=== PATIENT | male | born 1950 | race Two or more races ===

== ENCOUNTER 2017-08-23 08:33 | Inpatient (IN) | payer MEDICAID ==
[~2017-08-23] VITALS: Ht 170.2 cm; Wt 95.3 kg
[2017-08-23] MEDS ORDERED: Sodium Chloride 500ML 500 ML IV ONE (08:48)
[2017-08-23] MEDS: Nitroglycerin Subl 0.4mg tab SL PRN ×3 (08:53→11:08)
[2017-08-23 08:56] LABS: HEMATOCRIT 52.2 % (42.0-52.0); HEMOGLOBIN 17.4 G/DL (14.2-18.0); MEAN CORPUSCULAR VOLUME 95 FL (80-99); PLATELET COUNT 238 K/UL (150-450); RED BLOOD COUNT 5.52 M/UL (4.70-6.10); RED CELL DISTRIBUTION WIDTH 11.2 % (11.6-14.8); WHITE BLOOD COUNT 13.2 K/UL (4.8-10.8)
[2017-08-23] MEDS ORDERED: METOPROLOL TART25 MG ORAL (08:57)
[2017-08-23] MEDS ORDERED: LISINOPRIL2.5 MG ORAL (08:57)
[2017-08-23] MEDS ORDERED: FOLIC ACID1 MG ORAL (08:57)
[2017-08-23] MEDS ORDERED: PLAVIX75 MG ORAL (08:57)
[2017-08-23] MEDS ORDERED: ZOCOR40 MG ORAL (08:57)
[2017-08-23] MEDS ORDERED: ISOSORBIDE DINIT5 MG ORAL (08:57)
[2017-08-23 09:12] LABS: ANION GAP 7 mmol/L (5-15); BLOOD UREA NITROGEN 27 mg/dL (7-18); CALCIUM 8.5 MG/DL (8.5-10.1); CARBON DIOXIDE 31 MMOL/L (21-32); CHLORIDE 100 MMOL/L (98-107); CREATININE 1.5 MG/DL (0.55-1.30); POTASSIUM 4.6 MMOL/L (3.5-5.1); SODIUM 138 MMOL/L (136-145)
[2017-08-23 09:20] VITALS: BP 131/76
[2017-08-23 09:27] LABS: ALANINE AMINOTRANSFERASE 34 U/L (12-78); ALBUMIN 4.2 G/DL (3.4-5.0); ALBUMIN/GLOBULIN RATIO 1.1 (1.0-2.7); ALKALINE PHOSPHATASE 52 U/L (46-116); ASPARTATE AMINO TRANSFERASE 22 U/L (15-37); BILIRUBIN,TOTAL 0.6 MG/DL (0.2-1.0); CKMB 1.8 NG/ML (0.0-3.6); CREATINE KINASE 82 U/L (26-308)
[2017-08-23 11:01] VITALS: BP 158/84
--- NOTE | 2017-08-23 11:08 | Emergency Room Report ---
History of Present Illness General Chief Complaint: Chest Pain Source: Patient Present Illness HPI 66-year-old male presents ED complaining of chest pain started last night around midnight. Started at rest. Pressure-like, 8 out 10, midsternal, nonradiating. Patient states he did not take his blood pressure medications this morning. Patient is hypertensive and tachycardic. Denies shortness of breath. Denies alcohol or drug use. No other aggravating relieving factors. Denies any other associated symptoms Allergies: Coded Allergies: No Known Allergies (Unverified , 08/23/17) Patient History Past Medical History: DM, HTN, CAD Past Surgical History: none Pertinent Family History: none Social History: Denies: smoking, alcohol use, drug use Immunizations: UTD Reviewed Nursing Documentation: PMH: Agreed, PSxH: Agreed Nursing Documentation-PMH Past Medical History: No History, Except For Hx Cardiac Problems: Yes - 2x Stent placement Hx Hypertension: Yes Hx Pacemaker: No Hx Asthma: No Hx COPD: No Hx Diabetes: Yes Hx Cancer: No Hx Gastrointestinal Problems: No Hx Dialysis: No History Of Psychiatric Problem: No Hx Neurological Problems: No Hx Cerebrovascular Accident: No Hx Seizures: No Review of Systems All Other Systems: negative except mentioned in HPI Physical Exam Vital Signs Date Time Temp Pulse Resp B/P (MAP) Pulse Ox O2 Delivery O2 Flow Rate FiO2 08/23/17 08:38 97.7 121 17 172/140 97 Room Air 08/23/17 09:20 96 Sp02 EP Interpretation: reviewed, normal General Appearance: alert, GCS 15, non-toxic, mild distress Head: normocephalic, atraumatic Eyes: bilateral eye normal inspection, bilateral eye PERRL ENT: hearing grossly normal, normal pharynx, no angioedema, normal voice Neck: full range of motion, supple/symm/no masses Respiratory: chest non-tender, lungs clear, normal breath sounds, speaking full sentences Cardiovascular #1: no edema, tachycardia Cardiovascular #2: 2+ carotid (R), 2+ carotid (L), 2+ radial (R), 2+ radial (L) , 2+ dorsalis pedis (R), 2+ dorsalis pedis (L) Gastrointestinal: normal bowel sounds, non tender, soft, non-distended, no guarding, no rebound Rectal: deferred Genitourinary: normal inspection, no CVA tenderness Musculoskeletal: back normal, gait/station normal, normal range of motion, non- tender Neurologic: alert, oriented x3, responsive, motor strength/tone normal, sensory intact, speech normal Psychiatric: judgement/insight normal, memory normal, mood/affect normal, no suicidal/homicidal ideation Reflexes: 3+ bicep (R), 3+ bicep (L), 3+ tricep (R), 3+ tricep (L), 3+ knee (R) , 3+ knee (L) Skin: normal color, no rash, warm/dry, well hydrated Lymphatic: no adenopathy Medical Decision Making Diagnostic Impression: Primary Impression: ACS (acute coronary syndrome) Additional Impression: Renal insufficiency ER Course Hospital Course 66-year-old male presents ED complaining of chest pain, hypertensive Differential diagnoses include: AK/unstable angina, contusion, muscle strain, PTX, rib fracture Clinical course Patient placed on stretcher. on cardiac cath rn. After initial history and physical I ordered labs, EKG, chest x-ray, NTG labs reviewed- no leukocytosis, hb/hct stable, BUN/Cr elevated, trop x 1 negative EKG - sinus tachycardia, no acute ischemic changes interpreted by me Chest x-ray- atelectasis, no acute changes chest pain improved after NTG. BP improved - given metoprolol. given aspirin Case discussed with Dr. Soares and he agreed to accept the patient to his service for further care and support I. I feel this is a highly complex case requiring extensive working including EKG/Rhythm strip, Xray/CT/US, Blood/urine lab work, repeat exams while in ED, and administration of strong opiates/narcotics for pain control, admission to hospital or close patient follow up. Diagnosis - ACS, renal insufficiency admitted to telemetry in serious condition Labs Test 08/23/17 08:45 White Blood Count 13.2 K/UL (4.8-10.8) Red Blood Count 5.52 M/UL (4.70-6.10) Hemoglobin 17.4 G/DL (14.2-18.0) Hematocrit 52.2 % (42.0-52.0) Mean Corpuscular Volume 95 FL (80-99) Mean Corpuscular Hemoglobin 31.4 PG (27.0-31.0) Mean Corpuscular Hemoglobin Concent 33.2 G/DL (32.0-36.0) Red Cell Distribution Width 11.2 % (11.6-14.8) Platelet Count 238 K/UL (150-450) Mean Platelet Volume 6.8 FL (6.5-10.1) Neutrophils (%) (Auto) % (45.0-75.0) Lymphocytes (%) (Auto) % (20.0-45.0) Monocytes (%) (Auto) % (1.0-10.0) Eosinophils (%) (Auto) % (0.0-3.0) Basophils (%) (Auto) % (0.0-2.0) Differential Total Cells Counted 100 Neutrophils % (Manual) 95 % (45-75) Lymphocytes % (Manual) 3 % (20-45) Monocytes % (Manual) 2 % (1-10) Eosinophils % (Manual) 0 % (0-3) Basophils % (Manual) 0 % (0-2) Band Neutrophils 0 % (0-8) Platelet Estimate Adequate Platelet Morphology Normal Red Blood Cell Morphology Normal Sodium Level 138 MMOL/L (136-145) Potassium Level 4.6 MMOL/L (3.5-5.1) Chloride Level 100 MMOL/L (98-107) Carbon Dioxide Level 31 MMOL/L (21-32) Anion Gap 7 mmol/L (5-15) Blood Urea Nitrogen 27 mg/dL (7-18) Creatinine 1.5 MG/DL (0.55-1.30) Estimat Glomerular Filtration Rate 47.1 mL/min (>60) Glucose Level 159 MG/DL (74-106) Calcium Level 8.5 MG/DL (8.5-10.1) Total Bilirubin 0.6 MG/DL (0.2-1.0) Aspartate Amino Transf (AST/SGOT) 22 U/L (15-37) Alanine Aminotransferase (ALT/SGPT) 34 U/L (12-78) Alkaline Phosphatase 52 U/L (46-116) Total Creatine Kinase 82 U/L (26-308) Creatine Kinase MB 1.8 NG/ML (0.0-3.6) Creatine Kinase MB Relative Index 2.1 Troponin I 0.000 ng/mL (0.000-0.056) Pro-B-Type Natriuretic Peptide 60 pg/mL (0-125) Total Protein 8.1 G/DL (6.4-8.2) Albumin 4.2 G/DL (3.4-5.0) Globulin 3.9 g/dL Albumin/Globulin Ratio 1.1 (1.0-2.7) EKG Diagnostic Results Rate: tachycardiac Rhythm: NSR ST Segments: no acute changes ASA given to the pt in ED: Yes Rhythm Strip Diag. Results EP Interpretation: yes Rhythm: NSR, no PVC's, no ectopy Chest X-Ray Diagnostic Results Chest X-Ray Diagnostic Results : Chest X-Ray Ordered: Yes # of Views/Limited/Complete: 1 View Indication: Chest Pain EP Interpretation: Yes Interpretation: no consolidation, no effusion, no pneumothorax, no acute cardiopulmonary disease, other - atelectasis Impression: Other - atelectasis Electronically Signed by: Electronically signed by Rakan Green MD Last Vital Signs Date Time Temp Pulse Resp B/P (MAP) Pulse Ox O2 Delivery O2 Flow Rate FiO2 08/23/17 11:01 97.7 113 17 158/84 97 Room Air 08/23/17 09:20 96 Status: improved Disposition: ADMITTED INPATIENT Condition: Serious Referrals: [facility],REFERRING (PCP) RAKAN GREEN M.D. Aug 23, 2017 11:08
[2017-08-23] MEDS ORDERED: Mylanta II UD 30ml ORAL PRN (11:15)
[2017-08-23] MEDS ORDERED: Metoprolol 25mg tab ORAL ONE (11:15)
[2017-08-23] MEDS ORDERED: Miralax 17gm pkt ORAL PRN (11:15)
--- NOTE | 2017-08-23 11:15 | Diagnostic Imaging Report ---
Indication: Dyspnea Comparison: None A single view chest radiograph was obtained. Findings: There is mild basal atelectasis on the right. Lung volumes are low bilaterally. The heart is borderline enlarged. Bones are osteopenic. IMPRESSION: Mild right basilar atelectasis
[2017-08-23] MEDS ORDERED: Nitroglycerin Subl 0.4mg tab SL PRN (12:00)
[2017-08-23] MEDS ORDERED: Imdur 30mg tab ORAL ONE (14:00)
--- NOTE | 2017-08-23 15:44 | History and Physical ---
History of Present Illness General Date patient seen: Aug 23, 2017 Time patient seen: 14:00 Reason for Hospitalization: Chest Pain Present Illness HPI 66y/o male with pmh of HTN, CAD s/p PCI, HLD who presents with chest pain. Pt c/ o pressure like midsternal pain 04/06, non-radiation. Pt states he did not take his BP medications yesterday and today. He denies f/c, n/v, d/c, cough, SOB, abd pain. In ED, pt noted to be hypertensive w/ SBP 190s. EKG showed sinus tachy to 190s, ST-T wave changes concerning for inferior ischemia. TTE showed EF 70-75%. Allergies: Coded Allergies: No Known Allergies (Unverified , 08/23/17) Medication History Scheduled Clopidogrel Bisulfate* (Plavix*), 75 MG ORAL DAILY, (Reported) Folic Acid* (Folic Acid*), 1 MG ORAL DAILY, (Reported) Isosorbide Mononitrate (Isosorbide Mononitrate Er), 30 MG ORAL DAILY Lisinopril (Lisinopril*), 5 MG ORAL DAILY, (Reported) Metoprolol Tartrate* (Metoprolol Tartrate*), 25 MG ORAL EVERY 12 HOURS, ( Reported) Metoprolol Tartrate* (Metoprolol Tartrate*), 50 MG ORAL EVERY 12 HOURS Simvastatin (Zocor), 40 MG ORAL BEDTIME, (Reported) Miscellaneous Medications Isosorbide Dinitrate (Isosorbide Dinitrate*), 10 MG ORAL, (Reported) Discontinued Medications Lisinopril* (Lisinopril*), 5 MG ORAL DAILY, (Reported) Discontinued Reason: Prescription changed Patient History History Provided By: Patient, Medical Record, EMS Healthcare decision maker Resuscitation status Advanced Directive on File Past Medical/Surgical History Past Medical/Surgical History: (1) HTN (hypertension) (2) HLD (hyperlipidemia) (3) CAD s/p PCI Family History Family History: Patient reports no known family medical history. Social History Social History: (1) No significant social history Review of Systems Constitutional: Reports: no symptoms Eye: Reports: no symptoms ENT: Reports: no symptoms Respiratory: Reports: no symptoms Cardiovascular: Reports: chest pain Gastrointestinal: Reports: no symptoms Genitourinary: Reports: no symptoms Musculoskeletal: Reports: no symptoms Skin: Reports: no symptoms Psychiatric: Reports: no symptoms Neurological: Reports: no symptoms Endocrine: Reports: no symptoms Hematologic/Lymphatic: Reports: no symptoms All Other Systems: negative except mentioned in HPI Physical Exam Physical Exam Narrative General: alert, cooperative, no distress, appears stated age Head: normocephalic, without obvious abnormality, atraumatic Eyes: conjunctivae/corneas clear. PERRL, EOM's intact Throat: lips, mucosa, and tongue normal. MMM Neck: supple, symmetrical, trachea midline, and no JVD Lungs: clear to auscultation bilaterally Heart: regular rate and rhythm, S1, S2 normal, no murmur, click, rub or gallop Abdomen: soft, non-tender, non-distended, bowel sounds normal; no masses or organomegaly Extremities: extremities normal, atraumatic, no cyanosis or edema Pulses: 2+ and symmetric Skin: skin color, texture, turgor normal; no rashes or lesions Neurologic: grossly normal, no focal deficits Last 24 Hour Vital Signs Date Time Temp Pulse Resp B/P (MAP) Pulse Ox O2 Delivery O2 Flow Rate FiO2 08/23/17 11:08 158/84 08/23/17 11:07 113 158/84 08/23/17 11:01 97.7 113 17 158/84 97 Room Air 08/23/17 09:20 111 17 Room Air 96 08/23/17 09:20 97.7 111 17 131/76 97 Room Air 08/23/17 08:59 158/88 08/23/17 08:53 172/140 08/23/17 08:38 97.7 121 17 172/140 97 Room Air Laboratory Tests Test 08/23/17 08:45 White Blood Count 13.2 K/UL (4.8-10.8) H Red Blood Count 5.52 M/UL (4.70-6.10) Hemoglobin 17.4 G/DL (14.2-18.0) Hematocrit 52.2 % (42.0-52.0) H Mean Corpuscular Volume 95 FL (80-99) Mean Corpuscular Hemoglobin 31.4 PG (27.0-31.0) H Mean Corpuscular Hemoglobin Concent 33.2 G/DL (32.0-36.0) Red Cell Distribution Width 11.2 % (11.6-14.8) L Platelet Count 238 K/UL (150-450) Mean Platelet Volume 6.8 FL (6.5-10.1) Neutrophils (%) (Auto) % (45.0-75.0) Lymphocytes (%) (Auto) % (20.0-45.0) Monocytes (%) (Auto) % (1.0-10.0) Eosinophils (%) (Auto) % (0.0-3.0) Basophils (%) (Auto) % (0.0-2.0) Differential Total Cells Counted 100 Neutrophils % (Manual) 95 % (45-75) H Lymphocytes % (Manual) 3 % (20-45) L Monocytes % (Manual) 2 % (1-10) Eosinophils % (Manual) 0 % (0-3) Basophils % (Manual) 0 % (0-2) Band Neutrophils 0 % (0-8) Platelet Estimate Adequate Platelet Morphology Normal Red Blood Cell Morphology Normal Sodium Level 138 MMOL/L (136-145) Potassium Level 4.6 MMOL/L (3.5-5.1) Chloride Level 100 MMOL/L (98-107) Carbon Dioxide Level 31 MMOL/L (21-32) Anion Gap 7 mmol/L (5-15) Blood Urea Nitrogen 27 mg/dL (7-18) H Creatinine 1.5 MG/DL (0.55-1.30) H Estimat Glomerular Filtration Rate 47.1 mL/min (>60) Glucose Level 159 MG/DL (74-106) H Calcium Level 8.5 MG/DL (8.5-10.1) Total Bilirubin 0.6 MG/DL (0.2-1.0) Aspartate Amino Transf (AST/SGOT) 22 U/L (15-37) Alanine Aminotransferase (ALT/SGPT) 34 U/L (12-78) Alkaline Phosphatase 52 U/L (46-116) Total Creatine Kinase 82 U/L (26-308) Creatine Kinase MB 1.8 NG/ML (0.0-3.6) Creatine Kinase MB Relative Index 2.1 Troponin I 0.000 ng/mL (0.000-0.056) Pro-B-Type Natriuretic Peptide 60 pg/mL (0-125) Total Protein 8.1 G/DL (6.4-8.2) Albumin 4.2 G/DL (3.4-5.0) Globulin 3.9 g/dL Albumin/Globulin Ratio 1.1 (1.0-2.7) Height (Feet): 5 Height (Inches): 7.00 Weight (Pounds): 210 Medications Current Medications Medications (Trade) Dose Ordered Sig/Lachelle Route PRN Reason Start Time Stop Time Status Last Admin Dose Admin Acetaminophen (Tylenol) 650 mg Q4H PRN ORAL Mild Pain (Pain Scale 1-3) 08/23/17 11:15 09/22/17 11:14 Al Hydroxide/Mg Hydroxide (Mylanta II) 30 ml Q6H PRN ORAL dyspepsia 08/23/17 11:15 09/22/17 11:14 Aspirin (ASA) 81 mg DAILY ORAL 08/24/17 09:00 09/23/17 08:59 Atorvastatin Calcium (Lipitor) 40 mg QHS ORAL 08/23/17 21:00 09/22/17 20:59 Clopidogrel Bisulfate (Plavix) 75 mg DAILY ORAL 08/23/17 12:00 09/22/17 11:59 Dextrose (Dextrose 50%) STAT PRN IV Hypoglycemia 08/23/17 11:15 09/22/17 11:14 Diphenhydramine HCl (Benadryl) 25 mg Q6H PRN ORAL Itching/Pruritis 08/23/17 11:15 09/22/17 11:14 Docusate Sodium (Colace) 100 mg EVERY 12 HOURS ORAL 08/23/17 21:00 09/22/17 20:59 Folic Acid (Folate) 1 mg DAILY ORAL 08/23/17 18:00 09/22/17 17:59 Heparin Sodium (Porcine) (Heparin 5000 units/ml) 5,000 units EVERY 12 HOURS SUBQ 08/23/17 21:00 09/22/17 20:59 Metoprolol Tartrate (Lopressor) 25 mg EVERY 12 HOURS ORAL 08/23/17 21:00 09/22/17 20:59 Nitroglycerin (Ntg) 0.4 mg Q5MIN X 3 DOSES PRN SL Prn Chest Pain 08/23/17 12:00 09/22/17 11:59 Ondansetron HCl (Zofran) 4 mg Q6H PRN IVP Nausea & Vomiting 08/23/17 11:15 09/22/17 11:14 08/23/17 11:47 Polyethylene Glycol (Miralax) 17 gm DAILYPRN PRN ORAL Constipation 08/23/17 11:15 09/22/17 11:14 Assessment/Plan Problem List: (1) JEAN PIERRE (acute kidney injury) ICD Codes: N17.9 - Acute kidney failure, unspecified SNOMED: 66321906 (2) Atypical chest pain ICD Codes: R07.89 - Other chest pain SNOMED: 290665467 (3) Hypertensive urgency ICD Codes: I16.0 - Hypertensive urgency SNOMED: 591030823 (4) HLD (hyperlipidemia) ICD Codes: E78.5 - Hyperlipidemia, unspecified SNOMED: 80143468 (5) CAD s/p PCI Status: stable Assessment/Plan Admit to tele Cardiology consulted Trend trop/EKG Check TTE Plan for nuclear stress test Cont ASA, plavix, statin Cont MTP and imdur--uptitrate as tolerated Pain control, bowel regimen Supportive care FULL CODE D/w pt, RN, SW/CM, cardiology regarding mgmt and dispo Nayeli Zheng M.D. Aug 23, 2017 15:44
[2017-08-23 16:06] VITALS: BP 138/83
[2017-08-23 17:02] VITALS: BP 133/67
[2017-08-23] MEDS ORDERED: LISINOPRIL5 MG ORAL (17:20)
--- NOTE | 2017-08-23 17:39 | Cardiac Electrophysiology PN ---
Subjective Subjective Cardiology consult dictated [id number] Objective Last 24 Hour Vital Signs Date Time Temp Pulse Resp B/P (MAP) Pulse Ox O2 Delivery O2 Flow Rate FiO2 08/23/17 17:03 97.7 92 18 133/67 99 Room Air 96 08/23/17 17:02 97.7 92 18 133/67 99 Room Air 08/23/17 16:06 138/84 08/23/17 16:06 97.7 97 18 138/83 97 Room Air 08/23/17 11:08 158/84 08/23/17 11:07 113 158/84 08/23/17 11:01 97.7 113 17 158/84 97 Room Air 08/23/17 09:20 111 17 Room Air 96 08/23/17 09:20 97.7 111 17 131/76 97 Room Air 08/23/17 08:59 158/88 08/23/17 08:53 172/140 08/23/17 08:38 97.7 121 17 172/140 97 Room Air Laboratory Tests Test 08/23/17 08:45 White Blood Count 13.2 K/UL (4.8-10.8) H Red Blood Count 5.52 M/UL (4.70-6.10) Hemoglobin 17.4 G/DL (14.2-18.0) Hematocrit 52.2 % (42.0-52.0) H Mean Corpuscular Volume 95 FL (80-99) Mean Corpuscular Hemoglobin 31.4 PG (27.0-31.0) H Mean Corpuscular Hemoglobin Concent 33.2 G/DL (32.0-36.0) Red Cell Distribution Width 11.2 % (11.6-14.8) L Platelet Count 238 K/UL (150-450) Mean Platelet Volume 6.8 FL (6.5-10.1) Neutrophils (%) (Auto) % (45.0-75.0) Lymphocytes (%) (Auto) % (20.0-45.0) Monocytes (%) (Auto) % (1.0-10.0) Eosinophils (%) (Auto) % (0.0-3.0) Basophils (%) (Auto) % (0.0-2.0) Differential Total Cells Counted 100 Neutrophils % (Manual) 95 % (45-75) H Lymphocytes % (Manual) 3 % (20-45) L Monocytes % (Manual) 2 % (1-10) Eosinophils % (Manual) 0 % (0-3) Basophils % (Manual) 0 % (0-2) Band Neutrophils 0 % (0-8) Platelet Estimate Adequate Platelet Morphology Normal Red Blood Cell Morphology Normal Sodium Level 138 MMOL/L (136-145) Potassium Level 4.6 MMOL/L (3.5-5.1) Chloride Level 100 MMOL/L (98-107) Carbon Dioxide Level 31 MMOL/L (21-32) Anion Gap 7 mmol/L (5-15) Blood Urea Nitrogen 27 mg/dL (7-18) H Creatinine 1.5 MG/DL (0.55-1.30) H Estimat Glomerular Filtration Rate 47.1 mL/min (>60) Glucose Level 159 MG/DL (74-106) H Calcium Level 8.5 MG/DL (8.5-10.1) Total Bilirubin 0.6 MG/DL (0.2-1.0) Aspartate Amino Transf (AST/SGOT) 22 U/L (15-37) Alanine Aminotransferase (ALT/SGPT) 34 U/L (12-78) Alkaline Phosphatase 52 U/L (46-116) Total Creatine Kinase 82 U/L (26-308) Creatine Kinase MB 1.8 NG/ML (0.0-3.6) Creatine Kinase MB Relative Index 2.1 Troponin I 0.000 ng/mL (0.000-0.056) Pro-B-Type Natriuretic Peptide 60 pg/mL (0-125) Total Protein 8.1 G/DL (6.4-8.2) Albumin 4.2 G/DL (3.4-5.0) Globulin 3.9 g/dL Albumin/Globulin Ratio 1.1 (1.0-2.7) ARUN IRIZARRY Aug 23, 2017 17:39
[2017-08-23] MEDS ORDERED: Lexiscan 0.4mg/5ml syringe IV PRN (17:45)
[2017-08-23 17:52] VITALS: BP 136/80
--- NOTE | 2017-08-23 19:00 | Consultation ---
DATE OF CONSULTATION: 08/23/2017 CARDIOLOGY CONSULTATION CONSULTING PHYSICIAN: Ricco Mondragon M.D. ATTENDING/REFERRING PHYSICIAN: Shahriar Menendez M.D. REASON FOR CONSULTATION: Accelerated hypertension and chest pain. HISTORY OF PRESENT ILLNESS: The patient is a 66-year-old [place] gentleman with history of hypertension, coronary artery disease, prior stent placement, who came to the hospital complaining of chest pain that was 8/10, pressure like, it was midsternal, and was not radiating. The patient stated he did not take his blood pressure medication yesterday morning and was found to be very hypertensive. He stated his blood pressure at home was in 190s. The patient came to the emergency room and EKG showed sinus tachycardia of 112, ST-T wave abnormalities suggestive of inferior ischemia. His echocardiogram in the ER showed ejection fraction of 70% to 75%. At the time of my evaluation, he denies any chest pain or shortness of breath. REVIEW OF SYSTEMS: Performed and was negative other than what was mentioned history of present illness. PAST MEDICAL HISTORY: 1. Hypertension. 2. Coronary artery disease with prior stent placement. FAMILY HISTORY: Noncontributory. SOCIAL HISTORY: He lives at home. Does not smoke or drink alcohol. PHYSICAL EXAMINATION: VITAL SIGNS: Blood pressure is 132/67, pulse 92, respirations 18, and temperature 97.7. HEAD AND NECK: Shows no JVD. LUNGS: Clear. CARDIOVASCULAR: Shows regular S1, S2 with no gallop or murmur. ABDOMEN: Soft. EXTREMITIES: No pitting edema. LABORATORY AND DIAGNOSTIC DATA: His laboratories show white count of 13.2, hemoglobin of 17, hematocrit 52.2, platelet count of 238,000. Sodium 138, potassium 4.6, BUN of 27, creatinine 1.5, glucose 159. Troponin is negative. ASSESSMENT AND PLAN: 1. Atypical chest pain. The patient however has coronary artery disease and abnormal electrocardiogram. We will completely rule out myocardial infarction protocol. His echocardiogram showed normal left ventricular systolic function. We will schedule the patient for nuclear stress test for further evaluation. 2. Hypertension. Resume the patient's antihypertensive medication. The patient is on Imdur 30 mg daily. Increase metoprolol to 50 mg b.i.d. and add p.r.n. clonidine to his medical regimen. Thank you very much, Dr. Menendez, for allowing me to participate in the care of this patient. Please do not hesitate to contact me for any questions regarding my evaluation. Ricco Mondragon M.D. DR: Isabel JOB#: [id number] CC:
[2017-08-23 20:41] VITALS: BP 121/62
[2017-08-23] MEDS: Atorvastatin 20mg tab ORAL SCH (21:00)
[2017-08-23] MEDS: Metoprolol Tartrate 50mg tab ORAL SCH (21:00)
[2017-08-23] MEDS: Docusate 100mg cap ORAL SCH (21:00)
[2017-08-23] MEDS ORDERED: Metoprolol 25mg tab ORAL SCH (21:00)
[2017-08-23] MEDS: Heparin 5000 units/ml inj SUBQ SCH (21:00)
[2017-08-23 22:06] LABS: CHOLESTEROL 177 MG/DL (< 200); HDL CHOLESTEROL 52 MG/DL (40-60); TRIGLYCERIDES 159 MG/DL (30-150)
[2017-08-24 04:47] VITALS: BP 119/60
[2017-08-24 08:00] VITALS: BP 137/72
[2017-08-24 08:17] LABS: BASOPHILS % (AUTO) 0.6 % (0.0-2.0); EOSINOPHILS % (AUTO) 0.5 % (0.0-3.0); HEMATOCRIT 42.8 % (42.0-52.0); HEMOGLOBIN 14.6 G/DL (14.2-18.0); MEAN CORPUSCULAR VOLUME 95 FL (80-99); MONOCYTES % (AUTO) 8.5 % (1.0-10.0); NEUTROPHILS % (AUTO) 68.5 % (45.0-75.0); PLATELET COUNT 201 K/UL (150-450); RED BLOOD COUNT 4.53 M/UL (4.70-6.10); RED CELL DISTRIBUTION WIDTH 11.5 % (11.6-14.8); WHITE BLOOD COUNT 7.9 K/UL (4.8-10.8)
[2017-08-24] MEDS: Docusate 100mg cap ORAL SCH ×2 (08:59→20:44)
[2017-08-24] MEDS ORDERED: Aspirin Baby 81mg ORAL SCH (09:00)
[2017-08-24] MEDS: Metoprolol Tartrate 50mg tab ORAL SCH ×2 (09:00→20:45)
[2017-08-24 09:01] LABS: ANION GAP 8 mmol/L (5-15); BLOOD UREA NITROGEN 25 mg/dL (7-18); CALCIUM 7.7 MG/DL (8.5-10.1); CARBON DIOXIDE 29 MMOL/L (21-32); CHLORIDE 104 MMOL/L (98-107); CREATININE 1.3 MG/DL (0.55-1.30); SODIUM 140 MMOL/L (136-145)
[2017-08-24] MEDS: Heparin 5000 units/ml inj SUBQ SCH ×2 (09:01→20:45)
[2017-08-24 12:00] VITALS: BP 143/86
[2017-08-24] MEDS ORDERED: METOPROLOL TART50 MG ORAL (14:35)
[2017-08-24] MEDS ORDERED: ISOSORBIDE MONO30 M1 ORAL (14:36)
--- NOTE | 2017-08-24 15:49 | Diagnostic Imaging Report ---
Indication: Reason For Exam: CP Technique: IV administration 10.5 mCi 99m technetium Myoview. Resting SPECT images obtained Comparison: none Findings: Resting SPECT images demonstrate normal resting cardiac perfusion. Normal cardiac chamber size Impression: Normal resting cardiac perfusion scan. Therefore negative for the presence of infarct. Assessment for ischemia cannot be determined in the absence of stress images, however
--- NOTE | 2017-08-24 15:52 | Cardiac Electrophysiology PN ---
Assessment/Plan Assessment/Plan 1. Atypical chest pain. Ruled out for myocardial infarction protocol. His echocardiogram showed normal left ventricular systolic function. Stress echo today was nonischemic. 2. Hypertension. On Imdur 30 mg daily and metoprolol 50 mg b.i.d. and add p.r.n. clonidine OK to DC Subjective Subjective Had treadmill echo stress test today. No chest pain or SOB. Objective Last 24 Hour Vital Signs Date Time Temp Pulse Resp B/P (MAP) Pulse Ox O2 Delivery O2 Flow Rate FiO2 08/24/17 12:00 97.9 67 20 143/86 95 Room Air 08/24/17 09:00 68 119/60 08/24/17 08:00 98.0 69 20 137/72 93 Room Air 08/24/17 07:28 75 08/24/17 04:47 97.9 68 18 119/60 96 Room Air 08/24/17 04:00 71 08/24/17 00:00 71 08/23/17 21:00 96 121/62 08/23/17 20:41 97.7 96 18 121/62 92 Room Air 08/23/17 20:00 107 08/23/17 17:52 98.0 95 18 136/80 99 Room Air 08/23/17 17:03 97.7 92 18 133/67 99 Room Air 96 08/23/17 17:02 97.7 92 18 133/67 99 Room Air 08/23/17 16:06 138/84 08/23/17 16:06 97.7 97 18 138/83 97 Room Air Intake and Output 08/23/17 08/24/17 19:00 07:00 Intake Total 120 ml 120 ml Output Total 400 ml Balance 120 ml -280 ml Intake Oral 120 ml 120 ml Output Urine Total 400 ml # Voids 1 # Bowel Movements 1 3 Laboratory Tests Test 08/23/17 21:00 08/24/17 07:25 08/24/17 15:10 Hemoglobin A1c 5.2 % (4.3-6.0) Troponin I 0.017 ng/mL (0.000-0.056) 0.017 ng/mL (0.000-0.056) Pending Triglycerides Level 159 MG/DL (30-150) H Cholesterol Level 177 MG/DL (< 200) LDL Cholesterol 96 mg/dL (<100) HDL Cholesterol 52 MG/DL (40-60) Cholesterol/HDL Ratio 3.4 (3.3-4.4) Thyroid Stimulating Hormone (TSH) 0.360 uiU/mL (0.358-3.740) White Blood Count 7.9 K/UL (4.8-10.8) Red Blood Count 4.53 M/UL (4.70-6.10) L Hemoglobin 14.6 G/DL (14.2-18.0) Hematocrit 42.8 % (42.0-52.0) Mean Corpuscular Volume 95 FL (80-99) Mean Corpuscular Hemoglobin 32.3 PG (27.0-31.0) H Mean Corpuscular Hemoglobin Concent 34.2 G/DL (32.0-36.0) Red Cell Distribution Width 11.5 % (11.6-14.8) L Platelet Count 201 K/UL (150-450) Mean Platelet Volume 6.8 FL (6.5-10.1) Neutrophils (%) (Auto) 68.5 % (45.0-75.0) Lymphocytes (%) (Auto) 22.0 % (20.0-45.0) Monocytes (%) (Auto) 8.5 % (1.0-10.0) Eosinophils (%) (Auto) 0.5 % (0.0-3.0) Basophils (%) (Auto) 0.6 % (0.0-2.0) Sodium Level 140 MMOL/L (136-145) Potassium Level 4.0 MMOL/L (3.5-5.1) Chloride Level 104 MMOL/L (98-107) Carbon Dioxide Level 29 MMOL/L (21-32) Anion Gap 8 mmol/L (5-15) Blood Urea Nitrogen 25 mg/dL (7-18) H Creatinine 1.3 MG/DL (0.55-1.30) Estimat Glomerular Filtration Rate 55.6 mL/min (>60) Glucose Level 103 MG/DL (74-106) Calcium Level 7.7 MG/DL (8.5-10.1) L Magnesium Level 2.2 MG/DL (1.8-2.4) Microbiology Date/Time Source Procedure Growth Status 08/23/17 22:50 Stool Clostridium difficile Toxin Assay - Final Complete Objective HEAD AND NECK: Shows no JVD. LUNGS: Clear. CARDIOVASCULAR: Shows regular S1, S2 with no gallop or murmur. ABDOMEN: Soft. EXTREMITIES: No pitting edema. ARUN IRIZARRY Aug 24, 2017 15:52
[2017-08-24 16:00] VITALS: BP 126/72
[2017-08-24 20:15] VITALS: BP 130/74
[2017-08-24 20:45] VITALS: BP 130/74
[2017-08-24] MEDS: Atorvastatin 20mg tab ORAL SCH (20:45)
--- NOTE | 2017-08-24 21:05 | Discharge Summary ---
Discharge Summary Hospital Course Date of Admission Aug 23, 2017 at 09:45 Date of Discharge 08/24/17 Admitting Diagnosis ACS HPI 66y/o male with pmh of HTN, CAD s/p PCI, HLD who presents with chest pain. Pt c/ o pressure like midsternal pain 04/06, non-radiation. Pt states he did not take his BP medications yesterday and today. He denies f/c, n/v, d/c, cough, SOB, abd pain. In ED, pt noted to be hypertensive w/ SBP 190s. EKG showed sinus tachy to 190s, ST-T wave changes concerning for inferior ischemia. TTE showed EF 70-75%. Consultations Cardiology Hospital Course Pt was admitted to [facility] and ruled out for ACS with serial troponin. TTE showed normal EF. Pt was seen by cardiology and underwent nuclear cardiac stress test which was unremarkable. Pt was cleared fro discharge by cardiology. Discharge Medications New Medications: Isosorbide Mononitrate (Isosorbide Mononitrate Er) 30 Mg Tab.er.24h 30 MG ORAL DAILY for 30 Days, TAB Metoprolol Tartrate* (Metoprolol Tartrate*) 50 Mg Tablet 50 MG ORAL EVERY 12 HOURS for 60 Days, TAB Continued Medications: Clopidogrel Bisulfate* (Plavix*) 75 Mg Tablet 75 MG ORAL DAILY, TAB Folic Acid* (Folic Acid*) 1 Mg Tablet 1 MG ORAL DAILY, TAB Lisinopril (Lisinopril*) 5 Mg Tablet 5 MG ORAL DAILY, TAB Simvastatin (Zocor) 40 Mg Tablet 40 MG ORAL BEDTIME, TAB Discontinued Medications: Isosorbide Dinitrate (Isosorbide Dinitrate*) 5 Mg Tablet 10 MG ORAL, #30 TAB 0 Refills Metoprolol Tartrate* (Metoprolol Tartrate*) 25 Mg Tablet 25 MG ORAL EVERY 12 HOURS, TAB Discharge Condition Upon Discharge: stable Discharge Disposition Patient was discharged to home Discharge Diagnoses: (1) Atypical chest pain (2) CAD s/p PCI (3) Hypertensive urgency (4) JEAN PIERRE (acute kidney injury) (5) HTN (hypertension) (6) HLD (hyperlipidemia) Nayeli Zheng M.D. Aug 24, 2017 21:05
[2017-08-25] MEDS ORDERED: Imdur 30mg tab ORAL SCH (09:00)
--- NOTE | 2017-08-30 16:37 | Cardiology Report ---
APPROVED REPORT EXAM: Two-dimensional and M-mode echocardiogram with Doppler and color Doppler. INDICATION CAD M-Mode DIMENSIONS IVSd1.1 (0.7-1.1cm)Left Atrium (MM)3.8 (1.6-4.0cm) LVDd4.4 (3.5-5.6cm)Aortic Root4.1 (2.0-3.7cm) PWd1.1 (0.7-1.1cm)Aortic Cusp Exc.1.6 (1.5-2.0cm) IVSs1.9 cm LVDs2.5 (2.5-4.0cm) PWs1.5 cm Normal left ventricular chamber size, systolic function and wall motion. Left ventricular ejection fraction estimated to be 70-75 %. No evidence of left ventricular hypertrophy . No evidence of pericardial effusion. All other cardiac chamber sizes are within normal limits. Focal aortic valve sclerosis with adequate cusp excursion. Mild Thickened mitral valve leaflets with normal excursion. Mild Mitral annulus and aortic root calcification. Pulmonic valve not well visualized. Normal tricuspid valve structure. IVC at normal size with physiologic collapse. A color flow and spectral Doppler study was performed and revealed: No aortic regurgitation. Trace mitral regurgitation. Mitral diastolic velocities suggest reduced left ventricular relaxation c/w mild LV diastolic dysfunction (Grade I ). Trace tricuspid regurgitation. Tricuspid systolic velocities suggests peak right ventricular systolic pressure of 22 mmHg. No Pulmonic regurgitation present.
--- NOTE | 2017-09-01 09:59 | Discharge Summary ---
Discharge Summary Hospital Course Date of Admission Aug 23, 2017 at 09:45 Date of Discharge Aug 24, 2017 at 22:59 Admitting Diagnosis ACS HPI Krishna Pal is a 66 year old male who was admitted on Aug 23, 2017 at 09: 45 for Acute Coronary Syndrome Consultations Dr Ricco Mondragon Procedures Myocardial Stress Test Hospital Course 66y/o male with pmh of HTN, CAD s/p PCI, HLD who presents with chest pain. Pt c/ o pressure like midsternal pain 04/06, non-radiation. Pt states he did not take his BP medications yesterday and today. He denies f/c, n/v, d/c, cough, SOB, abd pain. In ED, pt noted to be hypertensive w/ SBP 190s. EKG showed sinus tachy to 190s, ST-T wave changes concerning for inferior ischemia. He was given aspirin, plavix , and statin. TTE showed EF 70-75%. He was continued on Imdur 30 mg daily and metoprolol 50 mg b.i.d. and add p.r.n. clonidine. Serial troponins monitored and was negative. he was not complaining of chest pain. Stress echo done was nonischemic. He was cleared for discharge home. Assessment/Plan Problem List: (1) JEAN PIERRE (acute kidney injury) ICD Codes: N17.9 - Acute kidney failure, unspecified SNOMED: 72215691 (2) Atypical chest pain ICD Codes: R07.89 - Other chest pain SNOMED: 176178695 (3) Hypertensive urgency ICD Codes: I16.0 - Hypertensive urgency SNOMED: 494386442 (4) HLD (hyperlipidemia) ICD Codes: E78.5 - Hyperlipidemia, unspecified SNOMED: 16317012 (5) CAD s/p PCI Status: stable --I have been assigned to complete a Dc summary on this account, I was not involved with the patient's management.--VIV Paz-- Discharge Discharge Disposition Patient was discharged to Home () Discharge Diagnoses: Lynne Shea NP Sep 01, 2017 09:59
--- NOTE | 2017-09-03 12:49 | Physician Query ---
PLEASE COMPLETE THE DOCUMENT BEFORE SIGNING Dear Dr. TORRES Date: 09/03/17 Supervisor Prep/CDS' Name: TREVER MOSHER Exercise your independent professional judgment when responding to query. Questions asked do not imply particular answer is desired or expected. We greatly appreciate your clarification on this issue. Clinical Documentation States:HPI: 66 year old male who was admitted on Jul at 09:45 for Acute Coronary Syndrome Consultations:Dr Ricco Mondragon Procedures:Myocardial Stress Test - NONISCHEMIC Hospital Course:66y/o male with pmh of HTN, CAD s/p PCI, HLD who presents with chest pain. Pt c/o pressure like midsternal pain 04/06, non-radiation. Pt states he did not take his BP medications yesterday and today. He denies f/c, n/v, d/c , cough, SOB, abd pain. In ED, pt noted to be hypertensive w/ SBP 190s. EKG showed sinus tachy to 190s, ST-T wave changes concerning for inferior ischemia. He was given aspirin, plavix , and statin. TTE showed EF 70-75%. He was continued on Imdur 30 mg daily and metoprolol 50 mg b.i.d. and add p.r.n. clonidine. Serial troponins monitored and was negative. he was not complaining of chest pain. Stress echo done was nonischemic. He was cleared for discharge home. Please document the suspected etiology of Chest Pain: a.Type: []Cardiac [x]Non-cardiac []Unspecified b.Etiology - cardiac [] Aortic dissection []Mitral valve prolapsed [] Acute myocardial infarction []Spasm of coronary arteries [] Coronary Artery Disease []Pericarditis c.Etiology - non-cardiac [] Anxiety []Pleurisy [] Cancer []Pneumonia, type [] Costochondritis []Pneumothorax [] GERD/Esophagitis []Pulmonary embolism [x] Unable to determine []Other: Please also document in your Progress Notes and/or Discharge Summary and indicate if the condition was present on admission. CARO TORRES M.D. DATE & TIME [facility]
--- NOTE | 2017-09-05 00:22 | Cardiology Report ---
APPROVED REPORT EKG Measurement Heart [id number] Sinus tachycardia N[address] ST abnormality Abnormal ECG
== END 2017-08-24 22:59 | disposition home or self-care (01) | DRG 198 ==
LOC: EMR 08:55 → EDBD 09:45 → 2E 09:45 → EDBEDREQ 16:12
DX: R07.89 Other chest pain (principal); I25.10 Atherosclerotic heart disease of native coronary artery without angina pectoris; N17.9 Acute kidney failure, unspecified; E11.9 Type 2 diabetes mellitus without complications; R00.0 Tachycardia, unspecified; I16.0 Hypertensive urgency; E78.5 Hyperlipidemia, unspecified; Z95.5 Presence of coronary angioplasty implant and graft
CPT/HCPCS: 36415; 71010; 78451; 80048; 80053; 80061; 82550; 82553; 83036; 83735; 83880; 84443; 84484; 85007; 85025; 87324; 93005; 93017; 93306; 93350; 99285; J2405; J2785

== ENCOUNTER 2017-12-19 16:07 | Emergency (ER) | payer MEDICARE, MEDICAID ==
[~2017-12-19] VITALS: Ht 170.2 cm; Wt 98.4 kg
[~2017-12-19 16:07] MED LIST: FOLIC ACID1 MG ORAL; ISOSORBIDE DINIT5 MG ORAL; ISOSORBIDE MONO30 M1 ORAL; LISINOPRIL2.5 MG ORAL; LISINOPRIL5 MG ORAL; METOPROLOL TART25 MG ORAL; METOPROLOL TART50 MG ORAL; PLAVIX75 MG ORAL; ZOCOR40 MG ORAL
[2017-12-19] MEDS ORDERED: traMADol 50mg tab ORAL ONE (16:45)
[2017-12-19] MEDS ORDERED: TRAMADOL HCL50 MG ORAL (17:31)
[2017-12-19 17:36] VITALS: BP 145/62
--- NOTE | 2017-12-19 18:58 | Emergency Room Report ---
History of Present Illness General Chief Complaint: Lower Extremity Injury Source: Patient Present Illness HPI 67-year-old male presents ED for evaluation complaining of left knee pain. States he was working on his roof today and felt a sudden pop in his left knee. Pain is throbbing, 10 out of 10, nonradiating. States he has difficulty bearing weight. Denies any other injuries. States similar episode is happened to him in the past did not seek medical attention at that time. No other aggravating relieving factors. Denies any other associated symptoms Allergies: Coded Allergies: No Known Allergies (Unverified , 08/23/17) Patient History Past Medical History: DM, HTN, CAD Past Surgical History: none Pertinent Family History: none Social History: Denies: smoking, alcohol use, drug use Immunizations: UTD Reviewed Nursing Documentation: PMH: Agreed; PSxH: Agreed Nursing Documentation-PMH Hx Cardiac Problems: Yes - 2x Stent placement Hx Hypertension: Yes Hx Pacemaker: No Hx Asthma: No Hx COPD: No Hx Diabetes: Yes Hx Cancer: No Hx Gastrointestinal Problems: No Hx Dialysis: No Hx Neurological Problems: No Hx Cerebrovascular Accident: No Hx Seizures: No Review of Systems All Other Systems: negative except mentioned in HPI Physical Exam Vital Signs Date Time Temp Pulse Resp B/P (MAP) Pulse Ox O2 Delivery O2 Flow Rate FiO2 12/19/17 16:13 97.7 71 23 153/69 95 Room Air 97.7 Sp02 EP Interpretation: reviewed, normal General Appearance: no apparent distress, alert, GCS 15, non-toxic Head: normocephalic Eyes: bilateral eye normal inspection, bilateral eye PERRL ENT: normal ENT inspection Neck: normal inspection Respiratory: normal inspection Cardiovascular #1: normal inspection Gastrointestinal: normal inspection Rectal: deferred Genitourinary: no CVA tenderness Musculoskeletal: tender - L knee Neurologic: alert, oriented x3, responsive, motor strength/tone normal, sensory intact, speech normal Psychiatric: normal inspection Skin: normal inspection Lymphatic: normal inspection Procedures Splinting Splinting : Consent: Verbal Pre-Made Type: CELIA wrap Pre-Proc Neuro Vasc Exam: normal Post-Proc Neuro Vasc Exam: normal Patient Tolerated: Well Complications: None Medical Decision Making Diagnostic Impression: Primary Impression: Knee sprain Qualified Codes: S83.92XA - Sprain of unspecified site of left knee, initial encounter ER Course Hospital Course 67-year-old male presents ED complaining of left knee pain Differential diagnoses include: Fracture, dislocation, sprain, contusion Clinical course Patient placed on stretcher. After initial history and physical, I ordered pain medications and Xrays of L knee Xrays prelim read shows no acute fracture/dislocation. placed in celia wrap, given crutches Discussed findings with patient. Clinically concerning for sprain. Recommended ice, elevation, close follow-up with PMD Diagnosis - knee sprain Stable and discharged to home with prescription for Tramadol. apply ice, keep elevated. weight bear as tolerated. Followup with PMD. Return to ED if symptoms recur or worsen Other X-Ray Diagnostic Results Other X-Ray Diagnostic Results : X-Ray ordered: L knee # of Views/Limited Vs Complete: 3 View Indication: Pain EP Interpretation: Yes Interpretation: no dislocation, no soft tissue swelling, no fractures Impression: No acute disease Electronically Signed by: Electronically signed by Rakan Green MD Last Vital Signs Date Time Temp Pulse Resp B/P (MAP) Pulse Ox O2 Delivery O2 Flow Rate FiO2 12/19/17 17:36 97.7 76 20 145/62 98 Room Air 207.9 Status: improved Disposition: HOME, SELF-CARE Condition: Stable Scripts Tramadol Hcl* (ULTRAM*) 50 Mg Tablet 50 MG ORAL Q6H PRN for For Pain, #30 TAB 0 Refills Prov: Rakan Green MD 12/19/17 Patient Instructions: Knee Sprain, [id number] Rakan Green MD Dec 19, 2017 18:58
--- NOTE | 2017-12-20 08:33 | Diagnostic Imaging Report ---
Indication: Pain Technique: XRAY Knee 3v LT Comparison: None Findings: There is no acute fracture or dislocation. Mild degenerative change with very mild medial joint space narrowing. No suprapatellar joint effusion. There is slight skin thickening anteriorly. There are atherosclerotic vascular calcifications. IMPRESSION: No evidence of acute fracture or dislocation. Questionable anterior skin thickening. Correlate with physical exam. Atherosclerotic disease.
== END 2017-12-19 17:38 | disposition home or self-care (01) ==
LOC: EDBD 16:07 → EMR 16:47
DX: S83.92XA Sprain of unspecified site of left knee, initial encounter (principal); E11.9 Type 2 diabetes mellitus without complications; I10 Essential (primary) hypertension; Z95.5 Presence of coronary angioplasty implant and graft; I25.10 Atherosclerotic heart disease of native coronary artery without angina pectoris; X58.XXXA Exposure to other specified factors, initial encounter; Y92.008 Other place in unspecified non-institutional (private) residence as the place of occurrence of the external cause
CPT/HCPCS: 99283

== ENCOUNTER 2019-03-14 18:53 | Inpatient (IN) | payer MEDICARE, MEDICAID ==
[~2019-03-14] VITALS: Ht 172.7 cm; Wt 98.9 kg
[~2019-03-14 18:53] MED LIST changes: +TRAMADOL HCL50 MG ORAL
[2019-03-14] MEDS ORDERED: LOSARTAN POTASS25 MG ORAL (19:12)
[2019-03-14] MEDS ORDERED: ZITHROMAX250 MG ORAL (19:13)
[2019-03-14] MEDS ORDERED: CEFUROXIME500 MG PO (19:13)
[2019-03-14 19:20] VITALS: BP 131/77
--- NOTE | 2019-03-14 19:20 | NUR ---
ED Nurse Note: Patient walked in to ER from urgent care due to pneumonia. Stated that went to urgent care 4 days ago and they prescribed antibitic. Today symptoms got worse and he went in to the same urgent care, after assessment they sent him to [facility]. AAO x4, VSS at this time skin is dry warm to touch. Patient's O2 sat 96 % on RA, sounds in all lobes dininished.
[2019-03-14] MEDS ORDERED: cefTRIAXone 1 GM in NS 55 ML IV SCH (19:30)
[2019-03-14] MEDS ORDERED: Azithromycin 500 MG in NS 275 ML IV SCH (19:30)
--- NOTE | 2019-03-14 19:45 | Emergency Room Report ---
History of Present Illness General Chief Complaint: Dyspnea/Respdistress Source: Patient Present Illness HPI 68y/o male with pmh of HTN, CAD s/p PCI, HLD, Zentz with shortness of breath, yellow sputum, cough, he denies any aggravating factors, he states his symptoms started 4 days prior to arrival, he was on an outpatient [facility], he endorses some mild chest pain. Patient presents for evaluation. He reports current shortness of breath Allergies: Coded Allergies: No Known Allergies (Unverified , 08/23/17) Patient History Past Medical History: see triage record Reviewed Nursing Documentation: PMH: Agreed; PSxH: Agreed Nursing Documentation-PMH Past Medical History: No History, Except For Hx Cardiac Problems: Yes - 2x Stent placement Hx Hypertension: Yes Hx Pacemaker: No Hx Asthma: No Hx COPD: No Hx Diabetes: Yes Hx Cancer: No Hx Gastrointestinal Problems: No Hx Dialysis: No Hx Neurological Problems: No Hx Cerebrovascular Accident: No Hx Seizures: No Review of Systems Constitutional: Denies: chills, fever Eye: Denies: blurred vision, double vision ENT: Denies: throat pain, nasal discharge Respiratory: Reports: cough, shortness of breath Cardiovascular: Reports: chest pain; Denies: palpitations Gastrointestinal: Denies: abdominal pain, diarrhea, nausea, vomiting Genitourinary: Denies: dysuria, pain Musculoskeletal: Denies: back pain, muscle pain Skin: Denies: rash, lesions Neurological: Denies: headache, focal weakness Hematologic/Lymphatic: Denies: easy bleeding, easy bruising All Other Systems: negative except mentioned in HPI Physical Exam Vital Signs Date Time Temp Pulse Resp B/P (MAP) Pulse Ox O2 Delivery O2 Flow Rate FiO2 03/14/19 19:02 98.2 80 26 131/77 (95) 94 Room Air Sp02 EP Interpretation: reviewed, normal General Appearance: well appearing, no apparent distress, alert Head: normocephalic, atraumatic Eyes: bilateral eye PERRL, bilateral eye EOMI ENT: uvula midline, moist mucus membranes Neck: supple, thyroid normal, supple/symm/no masses Respiratory: lungs clear, no respiratory distress, no retraction, no accessory muscle use Cardiovascular #1: normal peripheral pulses, regular rate, rhythm, no edema, no gallop, no murmur Gastrointestinal: non tender, soft, no guarding, no rebound Musculoskeletal: normal inspection Neurologic: alert, oriented x3 Psychiatric: mood/affect normal Skin: no rash, warm/dry Medical Decision Making Diagnostic Impression: Primary Impression: JEAN PIERRE (acute kidney injury) Additional Impression: Pneumonia ER Course 68-year-old male multiple comorbidities presents with shortness of breath on the differential is pneumonia, ACS, patient given IV antibiotics. Also found to have an JEAN PIERRE, patient given fluid resuscitation, IV antibiotics, patient with a slight lactic acidosis of 2.7, patient admitted to the telemetry bed under Dr. ONTIVEROS Laboratory Tests Test 03/14/19 19:38 03/14/19 19:45 03/14/19 21:00 White Blood Count 10.2 K/UL (4.8-10.8) Red Blood Count 4.89 M/UL (4.70-6.10) Hemoglobin 15.3 G/DL (14.2-18.0) Hematocrit 44.7 % (42.0-52.0) Mean Corpuscular Volume 91 FL (80-99) Mean Corpuscular Hemoglobin 31.2 PG (27.0-31.0) H Mean Corpuscular Hemoglobin Concent 34.2 G/DL (32.0-36.0) Red Cell Distribution Width 11.1 % (11.6-14.8) L Platelet Count 228 K/UL (150-450) Mean Platelet Volume 6.1 FL (6.5-10.1) L Neutrophils (%) (Auto) 55.4 % (45.0-75.0) Lymphocytes (%) (Auto) 29.1 % (20.0-45.0) Monocytes (%) (Auto) 9.8 % (1.0-10.0) Eosinophils (%) (Auto) 4.4 % (0.0-3.0) H Basophils (%) (Auto) 1.3 % (0.0-2.0) Prothrombin Time 10.2 SEC (9.30-11.50) Prothrombin Time INR 1.0 (0.9-1.1) PTT 29 SEC (23-33) Sodium Level 141 MMOL/L (136-145) Potassium Level 4.9 MMOL/L (3.5-5.1) Chloride Level 102 MMOL/L (98-107) Carbon Dioxide Level 32 MMOL/L (21-32) Anion Gap 7 mmol/L (5-15) Blood Urea Nitrogen 24 mg/dL (7-18) H Creatinine 1.7 MG/DL (0.55-1.30) H Estimate Glomerular Filtration Rate 40.5 mL/min (>60) Glucose Level 102 MG/DL (74-106) Lactic Acid Level 2.70 mmol/L (0.4-2.0) H Pending Calcium Level 9.7 MG/DL (8.5-10.1) Total Bilirubin 0.3 MG/DL (0.2-1.0) Direct Bilirubin < 0.1 MG/DL (0.0-0.3) Aspartate Amino Transferase (AST) 35 U/L (15-37) Alanine Aminotransferase (ALT) 43 U/L (12-78) Alkaline Phosphatase 60 U/L (46-116) Troponin I 0.000 ng/mL (0.000-0.056) Pro-B-Type Natriuretic Peptide 31 pg/mL (0-125) Total Protein 7.3 G/DL (6.4-8.2) Albumin 3.6 G/DL (3.4-5.0) Globulin 3.7 g/dL Albumin/Globulin Ratio 1.0 (1.0-2.7) Lipase 289 U/L (73-393) Urine Color Pale yellow Urine Appearance Clear Urine pH 6 (4.5-8.0) Urine Specific Brandon 1.010 (1.005-1.035) Urine Protein 1+ (NEGATIVE) H Urine Glucose (UA) Negative (NEGATIVE) Urine Ketones Negative (NEGATIVE) Urine Blood Negative (NEGATIVE) Urine Nitrite Negative (NEGATIVE) Urine Bilirubin Negative (NEGATIVE) Urine Urobilinogen Normal MG/DL (0.0-1.0) Urine Leukocyte Esterase Negative (NEGATIVE) Urine RBC 0-2 /HPF (0 - 0) H Urine WBC 0 /HPF (0 - 0) Urine Squamous Epithelial Cells None /LPF (NONE/OCC) Urine Bacteria None /HPF (NONE) EKG Diagnostic Results EKG Time: 19:25 EP Interpretation: Sinus rhythm, rate 75, QTc 413, no acute ST elevations Rate: normal Rhythm: NSR ST Segments: no acute changes Rhythm Strip Diag. Results Rhythm Strip Time: 19:45 EP Interpretation: yes Rate: 72 Rhythm: NSR, no PVC's, no ectopy Chest X-Ray Diagnostic Results Chest X-Ray Diagnostic Results : Chest X-Ray Ordered: Yes # of Views/Limited/Complete: 1 View Indication: Other - Syncope EP Interpretation: Yes Interpretation: other - increased interstitial markings Impression: Other - Pneumonia Electronically Signed by: Guido Murray MD Last Vital Signs Date Time Temp Pulse Resp B/P (MAP) Pulse Ox O2 Delivery O2 Flow Rate FiO2 03/14/19 19:02 98.2 80 26 131/77 (95) 94 Room Air Disposition: ADMITTED INPATIENT Condition: Stable Guido Murray M.D. Mar 14, 2019 19:45
[2019-03-14 20:12] LABS: BASOPHILS % (AUTO) 1.3 % (0.0-2.0); EOSINOPHILS % (AUTO) 4.4 % (0.0-3.0); HEMATOCRIT 44.7 % (42.0-52.0); HEMOGLOBIN 15.3 G/DL (14.2-18.0); LYMPHOCYTES % (AUTO) 29.1 % (20.0-45.0); MEAN CORPUSCULAR VOLUME 91 FL (80-99); MONOCYTES % (AUTO) 9.8 % (1.0-10.0); NEUTROPHILS % (AUTO) 55.4 % (45.0-75.0); PLATELET COUNT 228 K/UL (150-450); RED BLOOD COUNT 4.89 M/UL (4.70-6.10); RED CELL DISTRIBUTION WIDTH 11.1 % (11.6-14.8); WHITE BLOOD COUNT 10.2 K/UL (4.8-10.8)
[2019-03-14 20:19] LABS: APPEARANCE,URINE CLEAR; BILIRUBIN, URINE NEGATIVE (NEGATIVE); COLOR,URINE PALE YELLOW; GLUCOSE, URINE (UA) NEGATIVE (NEGATIVE); KETONES,URINE NEGATIVE (NEGATIVE); LEUKOCYTE ESTERASE ,URINE NEGATIVE (NEGATIVE); NITRITE,URINE NEGATIVE (NEGATIVE); PH,URINE 6 (4.5-8.0); PROTEIN,URINE 1+ (NEGATIVE); UROBILINOGEN,URINE NORMAL MG/DL (0.0-1.0)
[2019-03-14 20:20] LABS: ANION GAP 7 mmol/L (5-15); BLOOD UREA NITROGEN 24 mg/dL (7-18); CALCIUM 9.7 MG/DL (8.5-10.1); CARBON DIOXIDE 32 MMOL/L (21-32); CHLORIDE 102 MMOL/L (98-107); CREATININE 1.7 MG/DL (0.55-1.30); POTASSIUM 4.9 MMOL/L (3.5-5.1); SODIUM 141 MMOL/L (136-145)
[2019-03-14 20:31] LABS: ALANINE AMINOTRANSFERASE 43 U/L (12-78); ALBUMIN 3.6 G/DL (3.4-5.0); ALKALINE PHOSPHATASE 60 U/L (46-116); ASPARTATE AMINO TRANSFERASE 35 U/L (15-37); BILIRUBIN,DIRECT < 0.1 MG/DL (0.0-0.3); BILIRUBIN,TOTAL 0.3 MG/DL (0.2-1.0)
[2019-03-14 21:20] VITALS: BP 131/77
[2019-03-14 22:35] VITALS: BP 131/77
--- NOTE | 2019-03-14 22:35 | NUR ---
ED Nurse Note: Patient was admited to Tele due to pneumonia. Patient wa transfered to the unit via gurney by ACLS protocol with all belongings. AAO x4, VSS at this time, skin is dry warm to touch.
--- NOTE | 2019-03-14 23:00 | NUR ---
ADMISSION: Recvd pt. Pt arrived at 2300 via gurney. Admitting dx: PNA, admitting Dr Menendez, with Dr Zimmer covering. PT is on room air with no sign of sob or resp distress O2 sat 97%. Pt is AOX4. Pt is ambulatory and was able to transfer to bed safely, classifying machine operator placed on pt, showing NSR. Recvd admitting orders from DR Zimmer, orders entered, will conitnue with plan of care
[2019-03-14] MEDS ORDERED: oxyCODONE HCL/Acetaminophen 5/325mg ORAL PRN (23:45)
[2019-03-14] MEDS ORDERED: HydrALAZINE 25mg tab ORAL PRN (23:45)
[2019-03-15 04:00] VITALS: BP 100/65
[2019-03-15 06:36] LABS: BASOPHILS % (AUTO) 1.4 % (0.0-2.0); EOSINOPHILS % (AUTO) 4.8 % (0.0-3.0); HEMATOCRIT 42.1 % (42.0-52.0); HEMOGLOBIN 14.4 G/DL (14.2-18.0); LYMPHOCYTES % (AUTO) 38.6 % (20.0-45.0); MEAN CORPUSCULAR VOLUME 93 FL (80-99); MONOCYTES % (AUTO) 10.1 % (1.0-10.0); NEUTROPHILS % (AUTO) 45.2 % (45.0-75.0); PLATELET COUNT 206 K/UL (150-450); RED BLOOD COUNT 4.52 M/UL (4.70-6.10); RED CELL DISTRIBUTION WIDTH 11.7 % (11.6-14.8); WHITE BLOOD COUNT 8.6 K/UL (4.8-10.8)
[2019-03-15 06:44] LABS: ANION GAP 6 mmol/L (5-15); BLOOD UREA NITROGEN 24 mg/dL (7-18); CALCIUM 8.9 MG/DL (8.5-10.1); CARBON DIOXIDE 29 MMOL/L (21-32); CHLORIDE 103 MMOL/L (98-107); CREATININE 1.4 MG/DL (0.55-1.30); POTASSIUM 4.3 MMOL/L (3.5-5.1); SODIUM 138 MMOL/L (136-145)
--- NOTE | 2019-03-15 07:50 | NUR ---
NURSE NOTES: Report received from Philly RAMIREZ. Patient is awake, alert, oriented, and able to make needs known. Respiratory even and unlabored. IV site is asymptomatic, patent, and intact. Patient denies CP and/or SOB at this time. Bed is in lowest position with side rails up x2 and brakes are engaged. Will continue to monitor.
[2019-03-15 08:00] VITALS: BP 136/85
[2019-03-15] MEDS ORDERED: Heparin 5000 units/ml inj SUBQ SCH (09:00)
--- NOTE | 2019-03-15 09:09 | NUR ---
CASE MANAGEMENT:REVIEW 68 YR OLD MALE FROM URGENT CARE CC: SOB. ON ABX FOR 4 DAYS...SYMPTOMS WORSENING SI: PNEUMONIA. JEAN PIERRE 98.2 80 26 131/77 94% ON RA BUN+24 CR+1.7 IS: IV AZITHROMYCIN IV ROCEPHIN 1L NS BOLUS CHEST XRAY SPUTUM CX BLOOD CX : TO TELEMETRY UNIT INTERQUAL CRITERIA MET
--- NOTE | 2019-03-15 10:19 | Diagnostic Imaging Report ---
Indication: Shortness of breath Technique: One view of the chest Comparison: 08/23/2017 Findings: Lungs and pleural spaces are clear. Heart size is normal. No significant interim change Impression: No acute process
[2019-03-15] MEDS ORDERED: Metoprolol Tartrate 50mg tab ORAL SCH (10:45)
[2019-03-15] MEDS ORDERED: Losartan 25mg tab ORAL SCH (10:45)
--- NOTE | 2019-03-15 10:45 | NUR ---
NURSE NOTES: Contacted Dr. Brunson regarding home medications; per MD, continue all home medications. Notified the patient that the PMD will assess the patient after noon, patient states, "If the doctor is not here after 1pm, I will go home." RN encouraged patient to stay and wait for PMD incase the PMD prescribed medication for his PNA and prevent re-admission, pt verbalized understanding.
[2019-03-15 12:00] VITALS: BP 115/25
--- NOTE | 2019-03-15 13:45 | NUR ---
NURSE NOTES: Patient was admitted at 03/14/19 2300 complaining of SOB/CP, admitted for PNA. Patient states that he was administered antibiotics x5 days for the same diagnosis with no relief. RN explained to the patient that the PMD will see the patient after lunch, patient states "if he does not come after 1pm, I will leave. I will sign the paper." Primary RN explained to the patient the importance of adhering to MD's orders to prevent re-admission in the future. Primary RN attempted to convince patient to stay and wait for PMD for possible medication prescription, initially patient agreed and verbalized understanding. At 1315, patient demanded primary RN to remove IV and stated that he can no longer wait. Primary RN notified Dr. Brunson, which is in the other unit, regarding AMA. Per PMD, if patient cannot wait for 20 minutes, then ok to sign AMA. Patient signed AMA. Removed IV line and ID band. Returned cardiac care nurse to the desk monitor. Patient is in stable condition. Left at 1345 via private vehicle. All belongings are returned to the patient. Notified charge nurse.
[2019-03-15] MEDS ORDERED: cefTRIAXone 1 GM in D5W 55 ML IVPB ONE ×2 (20:00→21:00)
[2019-03-15] MEDS ORDERED: Azithromycin 500 MG in D5W 275 ML IV SCH (21:00)
[2019-03-15] MEDS ORDERED: Azithromycin 500 MG in D5W 275 ML IVPB SCH (21:00)
--- NOTE | 2019-03-16 14:27 | History and Physical ---
History of Present Illness General Date patient seen: Mar 15, 2019 Time patient seen: 12:00 Reason for Hospitalization: Dyspnea/Respdistress Present Illness HPI 68 y/o M admitted to the Hospital for shortness after taking 5 day of outpatient antibiotics without improvement. He was started on Ceftriaxone and Azithromycin. Admission was requested. The patient was eager to return home and decided to go ahead and sign AMA Allergies: Coded Allergies: No Known Allergies (Unverified , 08/23/17) Medication History Scheduled Azithromycin* (Zithromax*), 250 MG ORAL DAILY, (Reported) Cefuroxime Axetil* (Cefuroxime*), 500 MG PO Q12HR, (Reported) Clopidogrel Bisulfate* (Plavix*), 75 MG ORAL DAILY, (Reported) Losartan Potassium* (Losartan Potassium*), 25 MG ORAL BID, (Reported) Metoprolol Tartrate* (Metoprolol Tartrate*), 50 MG ORAL EVERY 12 HOURS Simvastatin (Zocor), 40 MG ORAL BEDTIME, (Reported) Discontinued Medications Folic Acid* (Folic Acid*), 1 MG ORAL DAILY, (Reported) Discontinued Reason: MD discontinued med Isosorbide Mononitrate (Isosorbide Mononitrate Er), 30 MG ORAL DAILY Discontinued Reason: MD discontinued med Lisinopril (Lisinopril*), 5 MG ORAL DAILY, (Reported) Discontinued Reason: MD discontinued med Tramadol Hcl* (Ultram*), 50 MG ORAL Q6H PRN for For Pain Discontinued Reason: MD discontinued med Patient History History Provided By: Patient Healthcare decision maker Resuscitation status Full Code Advanced Directive on File No Family History Family History: Patient reports no known family medical history. Review of Systems All Other Systems: negative except mentioned in HPI Physical Exam Lines, tubes and drains: peripheral HEENT: normocephalic Neck: non-tender Respiratory/Chest: lungs clear Cardiovascular/Chest: normal peripheral pulses, normal rate Abdomen: normal bowel sounds Skin Exam: normal pigmentation Neurologic: mailing machine assistant II-XII grossly normal Height (Feet): 5 Height (Inches): 8.00 Weight (Pounds): 218 Assessment/Plan Status: doing well Assessment/Plan: 68 y/o M with persistent shortness of breath and failed outpatient antibiotic therapy. # Community acquired pneumonia Continue CTX and Azythromycin HHN as needed Ambulation and IS # DVT and GI ppx FULL CODE Rosio Brunson MD Mar 16, 2019 14:27
--- NOTE | 2019-03-17 22:11 | Discharge Summary ---
Discharge Summary Discharge Summary _ DATE OF ADMISSION: 03/14/2019 DATE OF DISCHARGE: 03/15/2019 Patient left AGAINST MEDICAL ADVICE REASON FOR ADMISSION: 68 years old male with past medical history of hypertension, borderline diabetes , coronary artery disease, status post PCI, hyperlipidemia, presented with shortness of breath and productive cough. Symptoms started 4 days prior to arrival. Patient started as outpatient on [facility]. Patient also reported some shortness of breath. Upon evaluation vital signs revealed tachypnea with respiratory rate 26. Pulse oximetry was stable on room air. Laboratory work-up revealed no leukocytosis, stable hemoglobin and hematocrit. BUN 24, creatinine 1.7. 9 Stable electrolytes. Lactic acid 2.7. Stable LFT and lipase. Troponin negative. Pro BNP 31. EKG revealed sinus rhythm, no acute ischemic changes. Urinalysis revealed no evidence of urinary tract infection. Chest x-ray demonstrated no acute process. Patient started on empiric antibiotic and admitted to telemetry floor for further management. HOSPITAL COURSE: Patient continued on empiric IV antibiotics : azithromycin and ceftriaxone for community-acquired pneumonia. Pulse oximetry was stable on room air. Handheld nebulizing therapy with the bronchodilator provided as needed. DVT prophylaxis provided. Pain management was addressed. Blood pressure was managed with ARB and beta-kd. Plavix continued. . Patient ambulated without difficulty. Use of incentive spirometry was encouraged while in the bed. Patient decided to leave AGAINST MEDICAL ADVICE. The risks and consequences of signing AGAINST MEDICAL ADVICE were discussed with patient in detail. Patient verbalized understanding, nevertheless signed AMA form and left. FINAL DIAGNOSES: Community-acquired pneumonia I have been assigned to dictate discharge summary for this account. I was not involved in the patient's management. Bharti Lafleur NP Mar 17, 2019 22:11
--- NOTE | 2019-03-18 20:45 | Cardiology Report ---
APPROVED REPORT EKG Measurement Heart [id number] Normal sinus rhythm Cannot rule out Anterior infarct, age undetermined Abnormal ECG
== END 2019-03-15 13:45 | disposition left against medical advice (07) | DRG 194 ==
LOC: EMR 19:32 → 2E 20:21 → EDBEDREQ 22:01 → 2E 03-15 00:18
DX: J18.9 Pneumonia, unspecified organism (principal); N17.9 Acute kidney failure, unspecified; I10 Essential (primary) hypertension; I25.10 Atherosclerotic heart disease of native coronary artery without angina pectoris; Z95.5 Presence of coronary angioplasty implant and graft; E78.5 Hyperlipidemia, unspecified; Z79.02 Long term (current) use of antithrombotics/antiplatelets
CPT/HCPCS: 36415; 71045; 80048; 80053; 81003; 82248; 83605; 83690; 83880; 84484; 85025; 85610; 85730; 87040; 93005; 96360; 99285